=== PATIENT | male | born 1960 | race Caucasian/White ===

== ENCOUNTER 2019-10-01 10:08 | Emergency (ER) | payer OTHER ==
--- NOTE | 2019-10-01 10:43 | ED ---
Bite Injury/Animal - HPI Summary HPI Summary: Patient is a 59 y/o M presenting to [facility] with complaints of dog bite to the 3rd and 4th fingers of his left hand approximately one hour ago today, 10/01/19. He notes that the dog belongs to his tenant. Patient reports that the dog is typically friendly with him but has bitten people before. Dog is 23% lopes and is up to date on vaccinations per patient. Some tingling/numbness to his lacerated fingers noted. PMHx of DVT, liver cirrhosis, and pancreatitis reported. He has been on Xarelto since November 2018. Patient stopped at urgent care [facility], fingers were wrapped in bandages. He claims that the fingers have not been washed out. Patient was sent to ED for further evaluation. He has had tetanus shot within the past five years. NKDA reported. He is a non-smoker, notes rare alcohol usage, and denies substance usage. Home medications and allergies are reviewed. - History of Current Complaint Chief Complaint: EDAnimalBite Stated Complaint: DOG BITE PER PT Time Seen by Provider: 10/01/19 10:22 Hx Obtained From: Patient Onset of Injury: Happened hours ago, Still Present Type of Bite: Pet Has Animal Been Immunized?: Yes Severity Currently: Mild Pain Intensity: 3 Pain Scale Used: 0-10 Numeric Character: Abrasion/Laceration Associated Signs And Symptoms: Positive: Numbness/Tingling - Allergies/Home Medications Allergies/Adverse Reactions: Allergies Allergy/AdvReac Type Severity Reaction Status Date / Time No Known Allergies Allergy Verified 10/01/19 10:13 PMH/Surg Hx/FS Hx/Imm Hx Endocrine/Hematology History: Denies: Hx Diabetes, Hx Thyroid Disease Cardiovascular History: Reports: Hx Deep Vein Thrombosis Denies: Hx Hypertension Respiratory History: Denies: Hx Asthma, Hx Chronic Obstructive Pulmonary Disease (COPD) GI History: Reports: Hx Cirrhosis, Other GI Disorders - pancreatitis Denies: Hx Ulcer - Surgical History Surgery Procedure, Year, and Place: LEFT SHOULDER SURGERY Infectious Disease History: No Infectious Disease History: Denies: Hx Hepatitis, Hx Human Immunodeficiency Virus (HIV), History Other Infectious Disease, Traveled Outside the [place] in Last 30 Days - Family History Known Family History: Negative: Cardiac Disease, Hypertension, Diabetes - Social History Alcohol Use: Rare Substance Use Type: Reports: None Smoking Status (MU): Never Smoked Tobacco Review of Systems Skin: Other - positive - dog bite to 3rd and 4th fingers of left hand Positive: Paresthesia - lacerated fingers , Numbness - lacerated fingers All Other Systems Reviewed And Are Negative: Yes Physical Exam - Summary Physical Exam Summary: Constitutional: Well-developed, Well-nourished, Alert. (-) Distressed Skin: Warm, Dry HENT: Normocephalic; Atraumatic Eyes: Conjunctiva normal Neck: Musculoskeletal ROM normal neck. (-) JVD, (-) Stridor, (-) Tracheal deviation Cardio: Rhythm regular, rate normal, Heart sounds normal; Intact distal pulses; Radial pulses are 2+ and symmetric. (-) Murmur Pulmonary/Chest wall: Effort normal. (-) Respiratory distress, (-) Wheezes, (-) Rales Abd: Soft, (-) tenderness, (-) Distension, (-) Guarding, (-) Rebound Musculoskeletal: Left third finger with large laceration distal to DIP joint. Pinpoint laceration at palmar aspect just distal to PIP joint of the fourth left finger. FROM at DIP, PIP, and MCP joints at all fingers. Cap refill less than 2 seconds. Lymph: (-) Cervical adenopathy Neuro: Alert, Oriented x3 Psych: Mood and affect Normal Triage Information Reviewed: Yes Vital Signs On Initial Exam: Initial Vitals Temp Pulse Resp BP Pulse Ox 97.3 F 96 18 132/104 99 10/01/19 10:09 10/01/19 10:10/01/19 10:10/01/19 10:10/01/19 10:09 Vital Signs Reviewed: Yes Procedures - Procedure Summary Procedure Summary: Left third finger with large laceration distal to DIP joint was repaired. 10 cc lidocaine 1% without epi was applied as digital block. 7 5-0 Nylon stitches were placed. No complications pre or post procedure noted, patient stable throughout procedure. - Sedation Patient Received Moderate/Deep Sedation with Procedure: No - Laceration/Wound Repair Left 3rd finger Location: upper extremity - left 3rd finger Anesthesia: Digital, 1.0%, Lido Closure: Single Layer Suture Type: Nylon - 5-0 Number of Sutures: 7 Sterile Dressing Applied?: Yes Diagnostics - Vital Signs Vital Signs Temp Pulse Resp BP Pulse Ox 10/01/19 10:09 97.3 F 96 18 132/104 99 - Laboratory Lab Statement: Any lab studies that have been ordered have been reviewed, and results considered in the medical decision making process. - Radiology LEFT HAND X-RAY Radiology Interpretation Completed By: Radiologist Summary of Radiographic Findings: IMPRESSION: SOFT TISSUE INJURY, NO EVIDENCE FOR FRACTURE OR RADIOPAQUE FOREIGN BODY. THIS REPORT WAS REVIEWED BY ED PHYSICIAN. Re-Evaluation - Re-Evaluation First Eval Re-Evaluation Time: 11:29 Comment: Laceration repair started. Bite Injury Course/Dx - Course Course Of Treatment: Patient is here with a dog bite to his hand. This is a dog which is part lopes so the dog was not vaccinated due to that per the dog multicultural services librarian. However, the dog is available to be watched as the patient knows the dog multicultural services librarian. Patient has a large bite wound to his middle finger on his hand. Patient is able to range his finger at all joints. Patient had a digital block performed and had a loose approximation of his laceration due to the gaping nature. Patient had a XR which showed no foreign body or fracture. Patient was started on Augmentin. Patient was given hand surgery for follow-up - Diagnoses Provider Diagnosis: Dog bite, Laceration of finger of left hand Discharge ED - Sign-Out/Discharge Documenting (check all that apply): Patient Departure - discharge - Discharge Plan Condition: Stable Disposition: HOME Patient Education Materials: Animal Bite (ED), Care For Your Stitches (ED), Finger Laceration (ED) Referrals: [facility] [Outside] - 1 Day Milad Randall MD [Medical Doctor] - 1 Day Additional Instructions: PLEASE CALL DR. RANDALL, HAND SURGEON, TODAY FOR AN APPOINTMENT. IF YOU ARE UNABLE TO GET AN APPOINTMENT WITH DR. RANDALL FOR THIS WEEK, CALL THE [facility]. YOU CAN WASH YOUR STITCHES IN THE SHOWER BUT KEEP THEM DRY POSSIBLE. CHANGE DRESSING NECESSARY. PLEASE RETURN TO ED FOR ANY REDNESS AROUND YOUR WOUND, PUS FROM THE WOUND, PAIN TRACKING UP YOUR ARM, FEVER , CHILLS, INABILITY TO BEND YOUR FINGERS, OR ANY OTHER CONCERNING SYMPTOMS. - Billing Disposition and Condition Condition: STABLE Disposition: Home - Attestation Statements Document Initiated by Scribe: Yes Documenting Scribe: JERO FERNANDEZ Provider For Whom Scribe is Documenting (Include Credential): KENNY TAYLOR MD Scribe Attestation: I, JERO FERNANDEZ, scribed for KENNY TAYLOR MD on 10/01/19 at 1502. Scribe Documentation Reviewed: Yes Provider Attestation: The documentation as recorded by the scribeJERO accurately reflects the service I personally performed and the decisions made by me, KENNY TAYLOR MD Status of Scribe Document: Viewed
[2019-10-01] MEDS: Amoxicillin/Clavulanate TAB* 875 MG PO ONE (12:00)
[2019-10-01] MEDS: Lidocaine 1% MPF ** 5 ML VIAL INJ ONE (12:01)
[2019-10-01 12:05] VITALS: BP 134/91
== END 2019-10-01 12:06 | disposition home or self-care (01) ==
LOC: ED 10:08
DX: S61.253A Open bite of left middle finger without damage to nail, initial encounter (principal); S61.255A Open bite of left ring finger without damage to nail, initial encounter; W54.0XXA Bitten by dog, initial encounter; Y92.009 Unspecified place in unspecified non-institutional (private) residence as the place of occurrence of the external cause; Z86.718 Personal history of other venous thrombosis and embolism; Z79.01 Long term (current) use of anticoagulants
CPT/HCPCS: 12001; 99283; A9270-GY

== ENCOUNTER 2023-11-09 07:38 | Observation (INO) ==
[2023-11-09 10:29] LABS: Hematocrit 28.9 % (38-53); Hemoglobin 10.1 g/dL (13.2-16.3); Mean Corpuscular Hemoglobin 34.8 pg (27-33); Mean Corpuscular Hgb Conc 34.9 g/dL (31-36); Mean Corpuscular Volume 99.5 fL (80-97); Red Blood Count 2.91 10^6/uL (4.06-5.63); Red Cell Distribution Width 14.6 % (12-17); White Blood Count 5.3 10^3/uL (3.6-10.2)
[2023-11-09 11:03] LABS: ALT 30 U/L (7-52); AST 45 U/L (13-39); Albumin 2.7 g/dL (3.2-5.2); Alcohol, S < 13 mg/dL (<13); Alkaline Phosphatase 83 U/L (35-149); Anion Gap 8 mmol/L (2-16); Blood Urea Nitrogen 16 mg/dL (6-24); CO2 Carbon Dioxide 24 mmol/L (22-32); Calcium 8.2 mg/dL (8.6-10.3); Chloride 111 mmol/L (101-111); Creatinine, Serum 0.77 mg/dL (0.67-1.17); Globulin 2.7 g/dL (2-4); Glucose 104 mg/dL (70-100); Potassium 3.6 mmol/L (3.5-5.0); Sodium 143 mmol/L (135-145); Total Bilirubin 1.3 mg/dL (0.2-1.0); Total Protein 5.4 g/dL (6.4-8.9); eGFR CKD-EPI 99.4 (>60)
[2023-11-09 11:29] LABS: ABS Eosinophils 0.2 10^3/uL (0.0-0.5); ABS Lymphocytes 1.9 10^3/uL (1.0-4.8); ABS Monocytes 0.9 10^3/uL (0.0-1.1); ABS Neutrophils 2.3 10^3/uL (1.5-7.6); ABS Nucleated RBC 0.01 10^3/ul; Eosinophil % 4.1 %; Lymphocyte % 35.5 %; Nucleated Red Blood Cells % 0.2 %/100WBC (0.0-0.8); Platelet Count 99 10^3/uL (150-450)
[2023-11-09 13:00] LABS: Urine Benzodiazepine Screen None Detected (None Detect); Urine Cannabinoids Screen None Detected (None Detect); Urine Opiates Screen None Detected (None Detect)
[2023-11-09 13:21] LABS: Urine Appearance Turbid; Urine Bilirubin Negative (Negative); Urine Blood Negative (Negative); Urine Color Yellow; Urine Glucose Negative (Negative); Urine Ketones Trace (Negative); Urine Nitrite Negative (Negative); Urine Protein Trace (Negative); Urine Specific Gravity 1.028 (1.002-1.030); Urine Urobilinogen 1+ (Negative)
[2023-11-09] MEDS: Lactulose 30 ml UDC PO SCH (15:19)
[2023-11-10 06:35] LABS: ABS Eosinophils 0.1 10^3/uL (0.0-0.5); ABS Lymphocytes 1.5 10^3/uL (1.0-4.8); ABS Monocytes 0.8 10^3/uL (0.0-1.1); ABS Neutrophils 3.1 10^3/uL (1.5-7.6); ABS Nucleated RBC 0.01 10^3/ul; Eosinophil % 1.8 %; Hematocrit 29.8 % (38-53); Hemoglobin 10.3 g/dL (13.2-16.3); Lymphocyte % 26.7 %; Mean Corpuscular Hemoglobin 34.5 pg (27-33); Mean Corpuscular Hgb Conc 34.6 g/dL (31-36); Mean Corpuscular Volume 99.7 fL (80-97); Mean Platelet Volume 8.3 fL (7.5-11.2); Nucleated Red Blood Cells % 0.2 %/100WBC (0.0-0.8); Platelet Count 96 10^3/uL (150-450); Red Blood Count 2.99 10^6/uL (4.06-5.63); Red Cell Distribution Width 14.8 % (12-17); White Blood Count 5.5 10^3/uL (3.6-10.2)
[2023-11-10 06:51] LABS: Albumin 2.6 g/dL (3.2-5.2); Calcium 7.7 mg/dL (8.6-10.3); Creatinine, Serum 0.51 mg/dL (0.67-1.17); Globulin 2.7 g/dL (2-4); Potassium 3.7 mmol/L (3.5-5.0); Total Bilirubin 1.5 mg/dL (0.2-1.0); Total Protein 5.3 g/dL (6.4-8.9); eGFR CKD-EPI 112.5 (>60)
[2023-11-10] MEDS: Lactated Ringers 1000 ml BAG 1,000 ML IV ONE (12:15)
[2023-11-10] MEDS: Iohexol 350 (CONTRAST) 500 ML MDV IV ONE (16:57)
[2023-11-11 05:27] LABS: ABS Eosinophils 0.2 10^3/uL (0.0-0.5); ABS Lymphocytes 1.4 10^3/uL (1.0-4.8); ABS Monocytes 0.9 10^3/uL (0.0-1.1); ABS Neutrophils 2.4 10^3/uL (1.5-7.6); ABS Nucleated RBC 0.01 10^3/ul; Eosinophil % 3.3 %; Hematocrit 25.7 % (38-53); Lymphocyte % 28.8 %; Mean Corpuscular Hemoglobin 34.6 pg (27-33); Mean Corpuscular Hgb Conc 34.9 g/dL (31-36); Nucleated Red Blood Cells % 0.2 %/100WBC (0.0-0.8); Platelet Count 91 10^3/uL (150-450); Red Cell Distribution Width 14.4 % (12-17); White Blood Count 4.8 10^3/uL (3.6-10.2)
[2023-11-11 05:55] LABS: Calcium 7.7 mg/dL (8.6-10.3); Creatinine, Serum 0.6 mg/dL (0.67-1.17); Phosphorus 3.9 mg/dL (2.5-5.0); Potassium 3.7 mmol/L (3.5-5.0); eGFR CKD-EPI 107.1 (>60)
[2023-11-11 06:10] LABS: TSH Ultra Thyroid Stim Horm 0.4 mcIU/mL (0.34-5.60)
[2023-11-11] MEDS: Potassium Chlor 20 meq TAB.ER PO ONE (09:03)
[2023-11-11] MEDS: Multivitamins/Minerals TAB PO SCH (09:03)
[2023-11-11 14:05] VITALS: BP 108/58
[2023-11-11 15:52] LABS: Anaplasma phagocytophilum Negative (Negative); B. miyamotoi PCR, B Negative (Negative); Babesia divergens/MO-1 Negative (Negative); Babesia ducani Negative (Negative); Ehrlichia chaffeensis Negative (Negative); Ehrlichia ewingii/canis Negative (Negative); Ehrlichia muris eauclairensis Negative (Negative)
[2023-11-13 03:33] LABS: Pyridoxal 5-Phosphate (PLP), P 11 mcg/L (5-50)
== END 2023-11-11 16:25 | disposition short-term general hospital (02) ==
LOC: ED 07:38 → EDHOLD 07:38 → SUATTDRO 13:16 → MED 15:55
PROVIDERS: ADMIT Hospitalist; ATTEND Internal Medicine

== ENCOUNTER 2023-12-06 08:10 | Inpatient (IN) ==
[2023-12-06 09:19] LABS: Hematocrit 29.7 % (38-53); Hemoglobin 10.2 g/dL (13.2-16.3); Mean Corpuscular Hemoglobin 33.3 pg (27-33); Mean Corpuscular Hgb Conc 34.3 g/dL (31-36); Mean Corpuscular Volume 97.1 fL (80-97); Mean Platelet Volume 7.1 fL (7.5-11.2); Platelet Count 142 10^3/uL (150-450); Red Blood Count 3.06 10^6/uL (4.06-5.63); Red Cell Distribution Width 15.2 % (12-17)
[2023-12-06 09:20] LABS: Urine Appearance Clear; Urine Bilirubin Negative (Negative); Urine Blood Negative (Negative); Urine Color Yellow; Urine Glucose Negative (Negative); Urine Ketones Negative (Negative); Urine Nitrite Negative (Negative); Urine Protein Negative (Negative); Urine Specific Gravity 1.017 (1.002-1.030); Urine Urobilinogen 1+ (Negative); Urine pH 7.5 (5.0-8.0)
[2023-12-06 09:27] LABS: ABS Eosinophils 0.2 10^3/uL (0.0-0.5); ABS Lymphocytes 1.4 10^3/uL (1.0-4.8); ABS Monocytes 0.9 10^3/uL (0.0-1.1); ABS Neutrophils 1.4 10^3/uL (1.5-7.6); Eosinophil % 4.9 %; Lymphocyte % 36.4 %; Nucleated Red Blood Cells % 0.1 %/100WBC (0.0-0.8)
[2023-12-06 10:04] LABS: Albumin/Globulin Ratio 0.9 (1-3); Calcium 8.5 mg/dL (8.6-10.3); Creatinine, Serum 0.74 mg/dL (0.67-1.17); Globulin 3.2 g/dL (2-4); Potassium 3.6 mmol/L (3.5-5.0); Total Bilirubin 1.4 mg/dL (0.2-1.0); Total Protein 6.2 g/dL (6.4-8.9); eGFR CKD-EPI 100.6 (>60)
[2023-12-06] MEDS ORDERED: Senna TAB 8.6 mg TAB PO PRN (11:38)
[2023-12-06] MEDS: Potassium Chlor 20 meq TAB.ER PO ONE (12:26)
[2023-12-06] MEDS: Lactulose 30 ml UDC PO SCH ×2 (12:28→19:39)
[2023-12-06] MEDS: Lactated Ringers 1000 ml BAG 1,000 ML IV ONE (14:47)
[2023-12-06] MEDS: Lactated Ringers 1000 ml BAG 1,000 ML IV SCH (14:47)
[2023-12-07 04:54] LABS: Hematocrit 25.5 % (38-53); Hemoglobin 8.8 g/dL (13.2-16.3); Mean Corpuscular Hemoglobin 33.6 pg (27-33); Mean Corpuscular Hgb Conc 34.5 g/dL (31-36); Mean Corpuscular Volume 97.5 fL (80-97); Mean Platelet Volume 6.9 fL (7.5-11.2); Platelet Count 110 10^3/uL (150-450); Red Blood Count 2.62 10^6/uL (4.06-5.63); Red Cell Distribution Width 15.3 % (12-17); White Blood Count 3.2 10^3/uL (3.6-10.2)
[2023-12-07 04:59] LABS: INR 1.66 (0.83-1.13)
[2023-12-07 05:52] LABS: Albumin 2.5 g/dL (3.2-5.2); Albumin/Globulin Ratio 0.9 (1-3); Calcium 8.1 mg/dL (8.6-10.3); Creatinine, Serum 0.67 mg/dL (0.67-1.17); Globulin 2.8 g/dL (2-4); Potassium 3.8 mmol/L (3.5-5.0); Total Bilirubin 1.3 mg/dL (0.2-1.0); Total Protein 5.3 g/dL (6.4-8.9); eGFR CKD-EPI 103.6 (>60)
[2023-12-07 07:33] LABS: ABS Eosinophils 0.1 10^3/uL (0.0-0.5); ABS Lymphocytes 1.2 10^3/uL (1.0-4.8); ABS Monocytes 0.8 10^3/uL (0.0-1.1); ABS Neutrophils 1.1 10^3/uL (1.5-7.6); ABS Nucleated RBC 0.01 10^3/ul; Eosinophil % 3.1 %; Lymphocyte % 37.7 %; Nucleated Red Blood Cells % 0.2 %/100WBC (0.0-0.8)
[2023-12-07] MEDS: NS 0.9% 1000 ml BAG 1,000 ML IV SCH (11:08)
[2023-12-08 05:27] LABS: ABS Eosinophils 0.2 10^3/uL (0.0-0.5); ABS Lymphocytes 1.5 10^3/uL (1.0-4.8); ABS Monocytes 0.8 10^3/uL (0.0-1.1); ABS Neutrophils 1.9 10^3/uL (1.5-7.6); ABS Nucleated RBC 0.01 10^3/ul; Eosinophil % 4.4 %; Hematocrit 28.2 % (38-53); Hemoglobin 9.8 g/dL (13.2-16.3); Lymphocyte % 32.5 %; Mean Corpuscular Hemoglobin 33.8 pg (27-33); Mean Corpuscular Hgb Conc 34.8 g/dL (31-36); Mean Corpuscular Volume 97.1 fL (80-97); Mean Platelet Volume 7.3 fL (7.5-11.2); Nucleated Red Blood Cells % 0.2 %/100WBC (0.0-0.8); Platelet Count 132 10^3/uL (150-450); Red Blood Count 2.91 10^6/uL (4.06-5.63); Red Cell Distribution Width 14.9 % (12-17); White Blood Count 4.5 10^3/uL (3.6-10.2)
[2023-12-08 05:48] LABS: Albumin 2.8 g/dL (3.2-5.2); Calcium 8.2 mg/dL (8.6-10.3); Creatinine, Serum 0.57 mg/dL (0.67-1.17); Globulin 2.9 g/dL (2-4); Magnesium 1.9 mg/dL (1.9-2.7); Potassium 3.7 mmol/L (3.5-5.0); Total Bilirubin 1.8 mg/dL (0.2-1.0); Total Protein 5.7 g/dL (6.4-8.9); eGFR CKD-EPI 108.8 (>60)
[2023-12-08] MEDS: Lactulose 30 ml UDC PO SCH (10:41)
[2023-12-09] MEDS: Phytonadione IV (Adult) 5 MG in NS 0.9% 50 ML 50 ML IV ONE (09:59)
[2023-12-10] MEDS: cefTRIAXone 1 gm/50 mL D5W 1 GM/50 ML BAG IV SCH (01:10)
[2023-12-10 01:41] LABS: Hematocrit 27.4 % (38-53); Hemoglobin 9.4 g/dL (13.2-16.3); Mean Corpuscular Hemoglobin 33.2 pg (27-33); Mean Corpuscular Hgb Conc 34.3 g/dL (31-36); Mean Corpuscular Volume 96.7 fL (80-97); Mean Platelet Volume 7.3 fL (7.5-11.2); Platelet Count 107 10^3/uL (150-450); Red Blood Count 2.83 10^6/uL (4.06-5.63); White Blood Count 4.9 10^3/uL (3.6-10.2)
[2023-12-10 01:44] LABS: ABS Eosinophils 0.2 10^3/uL (0.0-0.5); ABS Lymphocytes 1.3 10^3/uL (1.0-4.8); ABS Monocytes 1.2 10^3/uL (0.0-1.1); ABS Neutrophils 2.2 10^3/uL (1.5-7.6); Eosinophil % 3.3 %; Lymphocyte % 27.3 %
[2023-12-10] MEDS: NS 0.9% 1000 ml BAG 1,000 ML IV ONE (01:50)
[2023-12-10 02:26] LABS: Albumin 2.6 g/dL (3.2-5.2); Albumin/Globulin Ratio 0.9 (1-3); Calcium 7.7 mg/dL (8.6-10.3); Creatinine, Serum 0.76 mg/dL (0.67-1.17); Globulin 2.8 g/dL (2-4); Potassium 3.7 mmol/L (3.5-5.0); Total Bilirubin 1.1 mg/dL (0.2-1.0); Total Protein 5.4 g/dL (6.4-8.9); eGFR CKD-EPI 99.7 (>60)
[2023-12-10 03:15] LABS: Influenza A Molecular Negative (Negative); Influenza B Molecular Negative (Negative)
[2023-12-10 04:55] LABS: Urine Appearance Clear; Urine Bilirubin Negative (Negative); Urine Blood Negative (Negative); Urine Color Yellow; Urine Glucose Negative (Negative); Urine Ketones Trace (Negative); Urine Nitrite Negative (Negative); Urine Protein Negative (Negative); Urine Urobilinogen 1+ (Negative)
[2023-12-10 06:55] LABS: C Reactive Protein 3.31 mg/L (<8.01)
[2023-12-10 10:39] LABS: Rapid COVID-19 Molecular Undetected (Undetected)
[2023-12-10] MEDS: Multivitamins/Minerals TAB PO SCH (17:24)
[2023-12-11 06:09] LABS: Hematocrit 26.9 % (38-53); Hemoglobin 9.2 g/dL (13.2-16.3); Mean Corpuscular Hemoglobin 33.3 pg (27-33); Mean Corpuscular Hgb Conc 34.2 g/dL (31-36); Mean Corpuscular Volume 97.3 fL (80-97); Mean Platelet Volume 8.1 fL (7.5-11.2); Platelet Count 108 10^3/uL (150-450); Red Blood Count 2.77 10^6/uL (4.06-5.63); Red Cell Distribution Width 15.6 % (12-17); White Blood Count 4.6 10^3/uL (3.6-10.2)
[2023-12-11 06:11] LABS: ABS Eosinophils 0.2 10^3/uL (0.0-0.5); ABS Lymphocytes 1.3 10^3/uL (1.0-4.8); ABS Monocytes 0.9 10^3/uL (0.0-1.1); ABS Neutrophils 2.1 10^3/uL (1.5-7.6); Eosinophil % 4.3 %; Lymphocyte % 28.6 %; Nucleated Red Blood Cells % 0.1 %/100WBC (0.0-0.8)
[2023-12-11 06:26] LABS: Creatinine, Serum 0.67 mg/dL (0.67-1.17); Potassium 3.9 mmol/L (3.5-5.0); eGFR CKD-EPI 103.6 (>60)
[2023-12-11 13:07] LABS: TSH Ultra Thyroid Stim Horm 0.55 mcIU/mL (0.34-5.60)
[2023-12-12 22:02] LABS: Rapid COVID-19 Molecular Undetected (Undetected)
[2023-12-13 13:42] VITALS: BP 129/60
== END 2023-12-13 16:30 | DRG 441 ==
LOC: ED 08:10 → EDHOLD 08:10 → SUATTDRO 11:38 → MED 12-07 10:31 → SUATTDRO 12-08 12:22
PROVIDERS: ADMIT Internal Medicine; ATTEND Internal Medicine